=== PATIENT | male | born 1975 | race African-American/Black ===

== ENCOUNTER 2020-07-19 05:19 | Emergency (ER) | payer MEDICAID ==
[~2020-07-19] VITALS: Ht 172.7 cm; Wt 72.6 kg
--- NOTE | 2020-07-19 05:20 | NUR ---
Patient to ER Tent to gown for evaluation. Side rails up.
[2020-07-19 05:25] VITALS: BP_SYST 126
--- NOTE | 2020-07-19 05:30 | NUR ---
Dr. Jordan chair side for pt eval
--- NOTE | 2020-07-19 05:35 | NUR ---
Pt BIB friend to ED C/O urinary burning x 3 days. Reports +penile discharge, self medicated with no relief. No other complaints noted VSS no s/s of acute distress Resting on chair
[2020-07-19 06:45] VITALS: BP_SYST 126
[2020-07-19] MEDS ORDERED: cefTRIAXone 250 MG VIAL IM ONE (06:45)
--- NOTE | 2020-07-19 06:45 | NUR ---
Patient given written and verbal discharge instructions and verbalizes understanding. ER MD discussed with patient the results and treatment provided. Patient in stable condition. ID arm band removed. Rx of Doxycycline given. Patient educated on pain management and to follow up with PMD. Pain Scale 0/10 Opportunity for questions provided and answered. Medication side effect fact sheet provided.
[2020-07-19 07:02] LABS: BILIRUBIN,URINE NEGATIVE (NEGATIVE); BLOOD, URINE NEGATIVE (NEGATIVE); CLARITY/URINE CLEAR (CLEAR); COLOR,URINE YELLOW (YELLOW); GLUCOSE,URINE NEGATIVE (NEGATIVE); KETONES,URINE NEGATIVE (NEGATIVE); LEUKOCYTE ESTERASE ,URINE NEGATIVE (NEGATIVE); NITRITE, URINE NEGATIVE (NEGATIVE); PROTEIN URINE NEGATIVE (NEGATIVE); UROBILINOGEN,URINE 0.2 (0.2-1.0)
[2020-07-20 23:07] LABS: NEISSERIA GONORRHOEAE NAA Negative (Negative)
== END 2020-07-19 06:45 | disposition home or self-care (01) ==
LOC: SED 05:19
DX: N34.2 Other urethritis (principal)
CPT/HCPCS: 36415; 81003; 87491; 87591; 96372; 99283